=== PATIENT | female | born 1955 | race Caucasian/White ===

== ENCOUNTER 2019-05-05 06:22 | Day surgery (SDC) | payer MEDICAID, OTHER ==
[~2019-05-05] VITALS: Ht 152.4 cm; Wt 59.0 kg
[~2019-05-05 06:22] MED LIST: ATORVASTATIN; HYDR-4011 PO; METFORMIN; ONDA4TAB11 PO
[2019-05-05 07:28] VITALS: Ht 152.4 cm; Wt 59.0 kg
[2019-05-05 07:52] VITALS: BP 164/78; PULSE 95; RESP 18
[2019-05-05] MEDS ORDERED: FENTAnyl 50 MCG/ML VIAL ONE (08:39)
[2019-05-05] MEDS ORDERED: MIDAZOLAM 1 MG/ML 2 ML INJ ONE ×2 (08:39)
[2019-05-05 09:00] VITALS: BP 117/66; PULSE 67; RESP 18
== END 2019-05-05 14:22 | disposition home or self-care (01) ==
LOC: GIL 06:22
PROVIDERS: ATTEND Internal Medicine Gastroenterology
DX: Z12.11 Encounter for screening for malignant neoplasm of colon (principal); K64.8 Other hemorrhoids; D12.3 Benign neoplasm of transverse colon; D12.5 Benign neoplasm of sigmoid colon; E11.9 Type 2 diabetes mellitus without complications
CPT/HCPCS: 45380; 45385; 82962; 88305; J2250; J3010; Z7610